=== PATIENT | female | born 1955 | race Caucasian/White ===

== ENCOUNTER 2017-12-28 09:32 | Day surgery (SDC) | payer OTHER, BC ==
[2017-12-28] MEDS ORDERED: FENTAnyl 50 MCG/ML VIAL (12:58)
[2017-12-28] MEDS ORDERED: MIDAZOLAM 1 MG/ML 2 ML INJ (12:59)
== END 2017-12-28 15:08 | disposition home or self-care (01) ==
LOC: GIL 09:32
DX: Z12.11 Encounter for screening for malignant neoplasm of colon (principal); K62.1 Rectal polyp; K64.8 Other hemorrhoids; E11.9 Type 2 diabetes mellitus without complications; I10 Essential (primary) hypertension
CPT/HCPCS: 45385; 82962; 88305